=== PATIENT | female | born 2000 | race African-American/Black ===

== ENCOUNTER 2025-11-05 09:49 | Emergency (ER) | payer MEDICAID ==
[~2025-11-05] VITALS: Ht 167.6 cm; Wt 66.0 kg
[2025-11-05 09:52] VITALS: TEMP 36.4; O2SAT 100
[2025-11-05 10:28] LABS: BASOPHILS % 0.5 % (0.0-2.0); EOSINOPHILS % 0.1 % (0.0-5.0); HEMATOCRIT. 44.7 % (36.0-48.0); HEMOGLOBIN. 15.3 g/dL (12.0-16.0); LYMPHOCYTES % 17.4 % (20.0-50.0); MEAN PLATELET VOLUME 10.4 fl (7.4-10.4); MONOCYTES % 3.9 % (2.0-8.0); NEUTROPHILS % 78.1 % (40.0-76.0); PLATELET 274 x1000/uL (130-400); RED BLOOD CELL COUNT 4.98 mill/uL (4.2-5.4); RED CELL DISTRIBUTION WIDTH 13.3 % (11.6-14.6)
[2025-11-05] MEDS: SODIUM CHLORIDE 0.9% 1,000 ML IV ONE ×2 (10:30→13:10)
[2025-11-05 10:51] LABS: CREATININE 1.1 mg/dL (0.6-1.0)
[2025-11-05 10:52] LABS: ETHANOL BLOOD < 10 mg/dL (<10); PROTEIN TOTAL 9.5 g/dL (6.0-8.3); UREA NITROGEN BLOOD 6 mg/dL (9-23)
[2025-11-05 10:53] LABS: ASPARTATE AMINOTRANSFERASE 48 IU/L (<34); TROPONIN I HIGH SENSITIVITY 4 ng/L (3.0-34)
[2025-11-05 10:54] LABS: BILIRUBIN TOTAL 1.5 mg/dL (0.1-1.0)
[2025-11-05 11:49] LABS: CLARITY URINE CLEAR (CLEAR); COLOR URINE YELLOW (YELLOW); GLUCOSE URINE NEGATIVE (NEGATIVE); KETONES URINE 2+ (NEGATIVE); LEUKOCYTE ESTERASE URINE NEGATIVE (NEGATIVE); NITRITE URINE NEGATIVE (NEGATIVE); OCCULT BLOOD URINE NEGATIVE (NEGATIVE); PH URINE 6.0 (4.5-8.0); PROTEIN URINE NEGATIVE (NEGATIVE); SPECIFIC GRAVITY URINE 1.006 (1.005-1.030); UROBILINOGEN URINE 0.2 E.U./dL (0.2-1.0)
[2025-11-05 12:19] LABS: *AMPHETAMINES SCREEN URINE PRESUMPTIVE POSITIVE (NEGATIVE); *BARBITURATES SCREEN URINE NEGATIVE (NEGATIVE); *BENZODIAZEPINES SCREEN URINE NEGATIVE (NEGATIVE); *COCAINE SCREEN URINE NEGATIVE (NEGATIVE)
[2025-11-05 12:20] LABS: CANNABINOID URINE SCREEN PRESUMPTIVE POSITIVE (NEGATIVE); ECSTASY MDMA SCREEN URINE NEGATIVE (NEGATIVE); METHADONE URINE SCREEN NEGATIVE (NEGATIVE); OPIATES URINE SCREEN NEGATIVE (NEGATIVE); PHENCYCLIDINE URINE SCREEN NEGATIVE (NEGATIVE)
[2025-11-05 15:08] VITALS: BP 124/77; PULSE 63; RESP 17; O2SAT 100
== END 2025-11-05 15:12 | disposition home or self-care (01) ==
LOC: ER 09:49
DX: R06.02 Shortness of breath (principal); R53.1 Weakness; R11.10 Vomiting, unspecified; Z79.899 Other long term (current) drug therapy; T50.905A Adverse effect of unspecified drugs, medicaments and biological substances, initial encounter; Y92.89 Other specified places as the place of occurrence of the external cause
CPT/HCPCS: 80053; 80305; 81003; 80320; 83735; 85025; 84484; 36415; 71045; 93005; 96360; 96361; 99285; J7030; Z7610; G0480